=== PATIENT | female | born 1960 | race Caucasian/White ===

== ENCOUNTER 2019-05-04 21:27 | Emergency (ER) | payer OTHER ==
[~2019-05-04] VITALS: Ht 162.6 cm; Wt 68.9 kg
[2019-05-04] MEDS ORDERED: ATACAND16 MG PO (21:38)
[2019-05-04] MEDS ORDERED: MONTELUKAST SODI4 M1 PO (21:39)
[2019-05-04] MEDS ORDERED: ACEBUTOLOL HCL200 MG PO (21:39)
[2019-05-04] MEDS ORDERED: SULFAZINE EC500 MG PO (21:39)
[2019-05-04] MEDS ORDERED: SALSALATE500 MG PO (21:40)
[2019-05-04] MEDS ORDERED: LUNESTA3 MG PO (21:40)
[2019-05-04] MEDS ORDERED: BUPROPION HCL75 MG PO (21:40)
== END 2019-05-04 23:58 | disposition home or self-care (01) ==
LOC: ER 21:27
DX: K29.60 Other gastritis without bleeding (principal)